=== PATIENT | male | born 1960 | race Caucasian/White ===

== ENCOUNTER 2016-10-31 10:04 | Emergency (ER) | payer MEDICAID, OTHER ==
[2016-10-31 10:12] VITALS: O2SAT 100
--- NOTE | 2016-10-31 10:45 | ERPHSYRPT ---
- History of Present Illness Time Seen by Provider: 10/31/16 10:39 Source: patient Exam Limitations: no limitations Patient Subjective Stated Complaint: PT REPORTS CHRONIC BACK PAIN-STATES HE BENT OVER 2 DAYS AGO ET LOW BACK HAS HURT SINCE THEN Triage Nursing Assessment: PT PINK WARM ET DRY-AMBULATORY WITH NO LIMP NOTED-NO OBVIOUS INJURY Physician History: The patient is a 55-year-old male complaining that he hurt his back when he bent over 2 days ago. He said it is a stabbing pain. He denies bowel or bladder abnormalities. He denies numbness. He's had back surgery in the past. His past medical history is significant for back pain, back surgery, and bipolar disorder. Timing/Duration: day(s) (2), sudden Method of Injury: bending Quality: sharp Back Pain Location: lumbar spine Severity of Pain-Max: moderate Severity of Pain-Current: moderate Modifying Factors: Improves With: nothing Associated Symptoms: denies symptoms Previous symptoms: same symptoms as today Allergies/Adverse Reactions: penicillin G Allergy (Intermediate, Verified 10/31/16 10:13) Hives Home Medications: Gabapentin [Neurontin] 800 mg PO DAILY 10/31/16 [History] [place] Carbonate 450 mg PO DAILY 10/31/16 [History] Hx Tetanus, Diphtheria Vaccination/Date Given: Yes Hx Influenza Vaccination/Date Given: No Hx Pneumococcal Vaccination/Date Given: No Immunizations Up to Date: Yes - Review of Systems Constitutional: No Fever, No Chills Eyes: No Symptoms Ears, Nose, & Throat: No Symptoms Respiratory: No Cough, No Dyspnea Cardiac: No Chest Pain, No Edema, No Syncope Abdominal/Gastrointestinal: No Abdominal Pain, No Nausea, No Vomiting, No Diarrhea Genitourinary Symptoms: No Dysuria Musculoskeletal: Back Pain Skin: No Rash Neurological: No Dizziness, No Focal Weakness, No Sensory Changes Psychological: No Symptoms Endocrine: No Symptoms Hematologic/Lymphatic: No Symptoms Immunological/Allergic: No Symptoms All Other Systems: Reviewed and Negative - Past Medical History Pertinent Past Medical History: Yes Neurological History: Peripheral Neuropathy Psycho-Social History: Bipolar - Past Surgical History Past Surgical History: Yes Musculoskeletal: Orthopedic Surgery - Social History Smoking Status: Current every day smoker How long have you smoked: YRS Exposure to second hand smoke: Yes Drug Use: none Patient Lives Alone: No - Nursing Vital Signs Nursing Vital Signs: Initial Vital Signs Temperature 98.2 F 10/31/16 10:08 Pulse Rate 84 10/31/16 10:08 Respiratory Rate 20 10/31/16 10:08 Blood Pressure 130/91 10/31/16 10:08 O2 Sat by Pulse Oximetry 100 10/31/16 10:08 Pain Scale Pain Intensity 6 - Physical Exam General Appearance: mild distress Eye Exam: PERRL/EOMI, eyes nml inspection Ears, Nose, Throat Exam: normal ENT inspection Neck Exam: normal inspection, non-tender, supple, full range of motion, No meningismus, No midline tenderness Respiratory Exam: normal breath sounds, lungs clear, No respiratory distress Cardiovascular Exam: regular rate/rhythm, normal heart sounds Gastrointestinal Exam: soft, No tenderness, No mass Rectal Exam: not done Back Exam: vertebral tenderness, decreased range of motion, muscle spasm Extremity Exam: normal inspection, normal range of motion, No calf tenderness, No pedal edema Neurologic Exam: alert, oriented x 3, cooperative, 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, normal mood/affect, nml station & gait, sensation nml, No motor deficits Skin Exam: normal color, warm, dry, No rash SpO2 Interpretation: normal SpO2: 100 Oxygen Delivery: Room Air - Radiology Exams L-Spine X-ray Interpretation: Negative (no acute per DR Ford.) Ordered Tests: Active Orders 24 hr Category Date Time Status LUMBAR LIMITED (2 OR 3 VIEWS) Stat Exams 10/31/16 10:53 Completed Medication Summary Discontinued Medications Generic Name Dose Route Start Last Admin Trade Name Isaias PRN Reason Stop Dose Admin Ketorolac Tromethamine 60 mg 10/31/16 10:53 10/31/16 11:02 Toradol 30 Mg Injection IM 10/31/16 10:54 60 mg STAT ONE Administration Ketorolac Tromethamine Confirm 10/31/16 11:00 Toradol 30 Mg Injection Administered 10/31/16 11:01 Dose 60 mg .ROUTE .STK-MED ONE - Progress Progress: improved Counseled pt/family regarding: rad results - Departure Time of Disposition: 12:14 Departure Disposition: Home Clinical Impression: Back pain Condition: Stable Critical Care Time: No Referrals: KAREN REECE [Primary Care Provider] - Additional Instructions: You have back pain. The x-ray of your low back was negative. The hardware you have is intact. You were given Toradol 60 mg by IM in the ER. Take Flexeril 5 mg every 8 hours as needed for pain and spasm. Take Tylenol and ibuprofen as needed. Follow-up as needed. Prescriptions: Cyclobenzaprine HCl [Flexeril] 5 mg PO TID PRN #10 tablet
[2016-10-31] MEDS ORDERED: TORAdol 30 mg Injection IM ONE (10:53)
[2016-10-31] MEDS ORDERED: TORAdol 30 mg Injection ONE (11:00)
[2016-10-31 11:11] VITALS: BP 145/71; PULSE 86
--- NOTE | 2016-10-31 12:11 | XRAY ---
Indication: Low back pain. No recent injury. Comparison: None 3 views of the lumbar spine demonstrates 5 lumbar vertebral segments with mild levorotoscoliosis centered at the L3 level, moderate L3-S1 degenerative disc disease, bilateral L4/L5 facet screws, and mild aortoiliac calcifications. No other bony, articular, or soft tissue abnormalities.
== END 2016-10-31 12:20 | disposition home or self-care (01) ==
LOC: ED 10:04
DX: M54.9 Dorsalgia, unspecified (principal); M54.5 Low back pain; X50.0XXA Overexertion from strenuous movement or load, initial encounter; F31.9 Bipolar disorder, unspecified
CPT/HCPCS: 72100; 96372; 99284; J1885